=== PATIENT | male | born 1985 | race African-American/Black ===

== ENCOUNTER 2017-04-22 15:45 | Emergency (ER) | payer MEDICAID ==
[~2017-04-22] VITALS: Ht 175.3 cm; Wt 116.0 kg
[2017-04-22] MEDS ORDERED: KETOROLAC 60MG/2ML VIAL IM ONE (17:15)
[2017-04-22 17:51] VITALS: BP 158/107
== END 2017-04-22 17:52 | disposition home or self-care (01) ==
LOC: ER 16:53
DX: L03.116 Cellulitis of left lower limb (principal); I10 Essential (primary) hypertension; F17.200 Nicotine dependence, unspecified, uncomplicated
CPT/HCPCS: 73630; 96372; 99284; J1885

== ENCOUNTER 2019-05-12 14:05 | Emergency (ER) | payer MEDICAID ==
[~2019-05-12] VITALS: Ht 175.3 cm; Wt 127.0 kg
[2019-05-12 18:20] LABS: CHLORIDE 105 mEq/L (98-107); PROTHROMBIN TIME 10.5 sec (9.6-11.0)
[2019-05-12 18:21] LABS: BASOPHILS % 0.3 % (0.0-2.0); EOSINOPHILS % 2.1 % (0.0-5.0); HEMOGLOBIN. 14.9 g/dL (14.0-18.0); LYMPHOCYTES % 20.6 % (20.0-50.0); MEAN CORPUSCULAR HEMOGLOBIN 31.3 pg (28.0-32.0); MEAN CORPUSCULAR VOLUME 92.4 fL (80.0-94.0); MEAN PLATELET VOLUME 10.4 fl (7.4-10.4); MONOCYTES % 7.2 % (2.0-8.0); NEUTROPHILS % 69.8 % (40.0-76.0); PLATELET 198 x1000/uL (130-400); RED BLOOD CELL COUNT 4.76 mill/uL (4.7-6.1); RED CELL DISTRIBUTION WIDTH 13.3 % (11.6-14.6)
[2019-05-12] MEDS ORDERED: ASPIRIN 325MG EC TABLET PO ONE (19:15)
[2019-05-12 20:00] LABS: CLARITY URINE CLEAR (CLEAR); COLOR URINE DARK YELLOW (YELLOW); KETONES URINE TRACE (NEGATIVE); LEUKOCYTE ESTERASE URINE NEGATIVE (NEGATIVE); NITRITE URINE NEGATIVE (NEGATIVE); OCCULT BLOOD URINE 2+ (NEGATIVE); PH URINE 5.5 (4.5-8.0); PROTEIN URINE 1+ (NEGATIVE); SPECIFIC GRAVITY URINE 1.026 (1.005-1.030)
[2019-05-12] MEDS ORDERED: IOHEXOL-350 100 ML BOTTLE ONE (21:42)
[2019-05-13] MEDS ORDERED: AMLODIPINE 10MG TABLET PO NR (01:30)
[2019-05-13 04:04] VITALS: BP 142/83
[2019-05-14] MEDS ORDERED: AMLODIPINE 10MG TABLET PO SCH (09:00)
== END 2019-05-13 04:46 | disposition left against medical advice (07) ==
LOC: ER 14:05 → CANBEDREQ 05-13 08:32
DX: I63.9 Cerebral infarction, unspecified (principal); J45.909 Unspecified asthma, uncomplicated; I10 Essential (primary) hypertension; F17.210 Nicotine dependence, cigarettes, uncomplicated; F12.10 Cannabis abuse, uncomplicated; Z86.73 Personal history of transient ischemic attack (TIA), and cerebral infarction without residual deficits
CPT/HCPCS: 36415; 70450; 70496; 70498; 71045; 80053; 81003; 85025; 85610; 93005; 99284; Q9967; Z7610